=== PATIENT | female | born 1985 | race Caucasian/White ===

== ENCOUNTER 2019-01-30 12:32 | Outpatient (CLI) | payer OTHER | END 2019-01-30 23:59 | disposition home or self-care (01) | LOC: RAD 12:32 | PROVIDERS: ATTEND Family Medicine | DX: M89.8X8 Other specified disorders of bone, other site (principal); Z97.5 Presence of (intrauterine) contraceptive device | CPT/HCPCS: 72170; 72220 ==

== ENCOUNTER 2019-02-04 09:58 | Outpatient (CLI) | payer OTHER ==
[2019-02-04 10:28] LABS: BASOPHILS # (AUTO) 0.1 X10'3 (0-0.2); BASOPHILS % (AUTO) 0.8 % (0-1); EOSINOPHILS # (AUTO) 0.2 X10'3 (0-0.9); EOSINOPHILS % (AUTO) 2.1 % (0-6); HEMATOCRIT 42.1 % (35.0-45.0); HEMOGLOBIN 14.4 g/dl (12.0-16.0); LYMPHOCYTES # (AUTO) 2.1 X10'3 (1.1-4.8); LYMPHOCYTES % (AUTO) 29.9 % (21-51); MEAN CORPUSCULAR HEMOGLOBIN 30.6 PG (27.0-31.0); MEAN CORPUSCULAR HGB CONC 34.2 g/dL (33.0-36.5); MEAN CORPUSCULAR VOLUME 89.5 FL (78-98); MEAN PLATELET VOLUME 12.3 FL (7.4-10.4); MONOCYTES # (AUTO) 0.3 X10'3 (0-0.9); MONOCYTES % (AUTO) 4.8 % (2-12); NEUTROPHILS # (AUTO) 4.5 X10'3 (1.8-7.7); NEUTROPHILS % (AUTO) 62.4 % (42-75); PLATELET COUNT 177 X10'3 (140-440); RED CELL DISTRIBUTION WIDTH 12.2 % (11.5-14.5); WHITE BLOOD COUNT 7.1 X10'3 (4.5-11.0)
[2019-02-04 10:53] LABS: ALANINE AMINOTRANSFERASE 15 U/L (12-78); ALBUMIN 4.1 G/DL (3.4-5.0); ALBUMIN/GLOBULIN RATIO 1.2 (1.1-1.5); ALKALINE PHOSPHATASE 72 IU/L (46-116); ANION GAP 6 (8-16); ASPARTATE AMINO TRANSFERASE 10 U/L (10-37); BILIRUBIN,TOTAL 1.1 MG/DL (0.1-1.0); BLOOD UREA NITROGEN 11 MG/DL (7-18); BUN/CREATININE RATIO 17.5 (6.6-38.0); CALCIUM 8.8 MG/DL (8.5-10.1); CHLORIDE 106 MMOL/L (99-107); CHOL/HDL RATIO 2.7 (0.00-4.99); CHOLESTEROL 122 MG/DL (0-200); CREATININE 0.63 MG/DL (0.40-0.90); GLUCOSE 83 MG/DL (70-104); HDL CHOLESTEROL 46 MG/DL (35-60); LDL CHOLESTEROL 73 MG/DL (50-100); POTASSIUM 3.9 MMOL/L (3.5-5.1); SODIUM 141 MMOL/L (135-145); TOTAL CARBON DIOXIDE 28.9 MMOL/L (24-32); TOTAL PROTEIN 7.5 G/DL (6.4-8.2); TRIGLYCERIDES 35 MG/DL (20-135); eGFR > 90 ML/MIN
[2019-02-04 11:03] LABS: HEMOGLOBIN A1C 4.9 % (4.5-6.2)
== END 2019-02-04 23:59 | disposition home or self-care (01) ==
LOC: LAB 09:58
PROVIDERS: ATTEND Family Medicine
DX: Z00.00 Encounter for general adult medical examination without abnormal findings (principal); D64.9 Anemia, unspecified; E03.9 Hypothyroidism, unspecified; E78.00 Pure hypercholesterolemia, unspecified; R79.9 Abnormal finding of blood chemistry, unspecified; E11.9 Type 2 diabetes mellitus without complications
CPT/HCPCS: 36415; 80053; 80061; 83036; 84443; 85025

== ENCOUNTER 2020-03-31 14:09 | Outpatient (CLI) | payer BC | END 2020-03-31 23:59 | disposition home or self-care (01) | LOC: 64 CT 14:09 | PROVIDERS: ATTEND Otolaryngology | DX: J32.9 Chronic sinusitis, unspecified (principal) | CPT/HCPCS: 76380 ==

== ENCOUNTER 2020-04-13 12:14 | Emergency (ER) | payer BC ==
[~2020-04-13] VITALS: Ht 165.1 cm; Wt 65.9 kg
== END 2020-04-13 13:00 | disposition home or self-care (01) ==
LOC: ER 12:14
DX: J06.9 Acute upper respiratory infection, unspecified (principal); R05 Cough; R50.9 Fever, unspecified
CPT/HCPCS: 99282

== ENCOUNTER 2020-12-21 06:03 | Day surgery (SDC) | payer BC ==
[2020-12-14 12:11] LABS: BASOPHILS % (AUTO) 0.6 % (0-1); EOSINOPHILS % (AUTO) 0.2 % (0-6); LYMPHOCYTES # (AUTO) 1.3 X10'3 (1.1-4.8); LYMPHOCYTES % (AUTO) 16.2 % (21-51); MEAN CORPUSCULAR HEMOGLOBIN 31.3 PG (27.0-31.0); MEAN CORPUSCULAR HGB CONC 34.3 g/dL (33.0-36.5); MEAN CORPUSCULAR VOLUME 91.2 FL (78-98); MEAN PLATELET VOLUME 12.1 FL (7.4-10.4); MONOCYTES # (AUTO) 0.3 X10'3 (0-0.9); MONOCYTES % (AUTO) 3.3 % (2-12); NEUTROPHILS # (AUTO) 6.5 X10'3 (1.8-7.7); NEUTROPHILS % (AUTO) 79.7 % (42-75); PRE OP HEMATOCRIT 42.4 % (35.0-45.0); PRE OP HEMOGLOBIN 14.5 g/dL (12.0-16.0); PRE OP PLATELET COUNT 183 X10'3 (140-440); RED BLOOD COUNT 4.65 X10'6 (4.20-5.60); RED CELL DISTRIBUTION WIDTH 12.4 % (11.5-14.5)
[2020-12-14 12:22] LABS: PRE OP INR 1.1 INR; PRE OP PROTIME 11.2 SECONDS (9.0-12.0)
[2020-12-14 12:24] LABS: ALBUMIN 4.2 G/DL (3.4-5.0); ALBUMIN/GLOBULIN RATIO 1.2 (1.1-1.5); ALKALINE PHOSPHATASE 60 IU/L (46-116); BLOOD UREA NITROGEN 9 MG/DL (7-18); BUN/CREATININE RATIO 12.5 (6.6-38.0); CALCIUM 8.9 MG/DL (8.5-10.1); CHLORIDE 105 MMOL/L (99-107); CREATININE 0.72 MG/DL (0.40-0.90); PRE OP ALT 17 U/L (30-65); PRE OP ANION GAP 11 (8-16); PRE OP AST 13 U/L (10-37); PRE OP GLUCOSE 99 MG/DL (70-104); PRE OP POTASSIUM 3.7 MMOL/L (3.4-5.1); PRE OP SODIUM 141 MMOL/L (135-145); TOTAL CARBON DIOXIDE 24.9 MMOL/L (24-32); TOTAL PROTEIN 7.8 G/DL (6.4-8.2); eGFR > 90 ML/MIN
[2020-12-14 12:32] LABS: HCG SERUM QL NEGATIVE
[2020-12-14 15:09] LABS: LARGE PLATELETS MODERATE; PLATELET ESTIMATE NORMAL
[~2020-12-21] VITALS: Ht 165.1 cm; Wt 67.7 kg
[2020-12-21] VITALS (8 sets, daily range): BP systolic 98–119; BP diastolic 71–85
[~2020-12-21 06:03] MED LIST: GALC120P SQ; diazepam 5mg tablet PO PRN; famotidine 20mg tablet PO ONE; oxymetazoline 15 ML nasal spray NS PRN; ringers solution, lacted 1,000 ML IV SCH
[2020-12-21] MEDS ORDERED: cocaine 4% topical solution 4ml bottle ONE (06:41)
[2020-12-21] MEDS ORDERED: ceFAZolin 1000mg inj ONE (06:41)
[2020-12-21] MEDS ORDERED: oxymetazoline 15 ML nasal spray NS ONE (06:42)
[2020-12-21] MEDS ORDERED: LIDOcaine 1% W/epiNEPHrine 1:100,000 20ml vial ONE (06:42)
[2020-12-21] MEDS ORDERED: mupirocin 2% ointment 22GM ONE (06:42)
[2020-12-21] MEDS ORDERED: midazolam 1 mg/ML 2ml injection ONE (07:48)
[2020-12-21] MEDS ORDERED: dexamethasone sod phosphate 10mg/ml inj ONE (08:01)
[2020-12-21] MEDS ORDERED: sevoflurane 250ml liquid IH ONE (08:01)
[2020-12-21] MEDS ORDERED: ondansetron/PF 4mg/2ml inj ONE (08:02)
[2020-12-21] MEDS ORDERED: propofol inj 20 ML IV ONE (08:02)
[2020-12-21] MEDS ORDERED: fentaNYL/PF 50MCG/1 ML 2ML syringe ONE (08:02)
[2020-12-21] MEDS ORDERED: ondansetron/PF 4mg/2ml inj IV PRN (08:40)
[2020-12-21] MEDS ORDERED: proCHLORperazine 10 MG/2 ml inj IV PRN (08:40)
[2020-12-21] MEDS ORDERED: morphine 4 MG/ML inj SYRINge IV PRN (08:40)
[2020-12-21] MEDS ORDERED: ringers solution, lacted 1,000 ML IV SCH (08:40)
[2020-12-21] MEDS ORDERED: meperidine/PF 25mg/ml syringe IV PRN ×3 (08:40)
[2020-12-21] MEDS ORDERED: morphine 2 MG/ML inj. syringe IV PRN (08:40)
--- NOTE | 2020-12-21 09:18 | NUR ---
Received from OR via [facility] IN STABLE CONDITION , accompanied by Anesthesiologist and BRIQUETTE MACHINE OPERATOR report given by BRIQUETTE MACHINE OPERATOR AND Anesthesiolgist. Addendum: 12/21/20 at 0943 by Myra Sam RN Amended: Links added.
--- NOTE | 2020-12-21 09:30 | NUR ---
LMA REMOVED Addendum: 12/21/20 at 0959 by Myra Sam RN Amended: Links added.
[2020-12-21] MEDS ORDERED: mupirocin 2% ointment 22GM TP SCH (09:40)
[2020-12-21] MEDS ORDERED: salt irrigation nasal spray 45 ML SPRAY NS PRN (10:20)
--- NOTE | 2020-12-21 10:38 | NUR ---
PATIENT DISCHARGED FROM PACU AFTER WRITTEN AND VERBAL DISCHARGE INSTRUCTIONS GIVEN. PATIENT GAVE VERBAL UNDERSTANDING OF INSTRUCTIONS GIVEN. PATIENT LEFT FACILITY VIA WHEELCHAIR WITH RN. Addendum: 12/21/20 at 1044 by Myra Sam RN Amended: Links added.
== END 2020-12-21 10:38 | disposition home or self-care (01) ==
LOC: PAS 06:03
PROVIDERS: ATTEND Otolaryngology
DX: J34.2 Deviated nasal septum (principal); J34.3 Hypertrophy of nasal turbinates; G43.909 Migraine, unspecified, not intractable, without status migrainosus; Z79.01 Long term (current) use of anticoagulants; Z79.899 Other long term (current) drug therapy; Z87.11 Personal history of peptic ulcer disease; Z20.822 Contact with and (suspected) exposure to COVID-19
CPT/HCPCS: 30140; 30520; 36415; 80053; 82948; 84703; 85025; 85576; 85610; 85730; 87635; A6402; C9250; C9803; J0690; J1100; J2175; J2250; J2405; J2704; J3010; J7120; Z7506; Z7508; Z7512; 85008; A4618; A7000